=== PATIENT | female | born 1975 | race Caucasian/White ===

== ENCOUNTER 2017-01-07 15:51 | Emergency (ER) | payer BC ==
[2017-01-07] MEDS ORDERED: Ondansetron INJ* 2 MG/ML VIAL IV ONE (16:30)
[2017-01-07] MEDS ORDERED: NS 0.9% 1000 ML* 1,000 ML IV ONE (16:30)
[2017-01-07] MEDS ORDERED: Famotidine IV* 10 MG/ML 2 ML (20 mg) IV ONE (16:30)
[2017-01-07 17:05] LABS: Hematocrit 48 % (35-47); Hemoglobin 15.7 g/dl (12.0-16.0); Mean Corpuscular HGB Conc 33 g/dl (31-36); Mean Corpuscular Hemoglobin 29 pg (27-31); Mean Corpuscular Volume 88 fL (80-97); Mean Platelet Volume 7 um3 (7.4-10.4); Red Blood Count 5.43 10^6/ul (4.0-5.4); Red Cell Distribution Width 13 % (10.5-15); White Blood Count 16.2 10^3/ul (3.5-10.8)
[2017-01-07 17:23] LABS: Albumin 4.4 g/dL (3.2-5.2); BUN/Creatinine Ratio 19.5 (8-20); C Reactive Protein 1.56 mg/L (< 5.00); Calcium 9.7 mg/dL (8.6-10.3); EGFR African American 91.4 (>60); EGFR Non-African American 71.1 (>60); Globulin 3.2 g/dL (2-4); Potassium 3.6 mmol/L (3.5-5.0); Total Bilirubin 0.7 mg/dL (0.2-1.0); Total Protein 7.6 g/dL (6.4-8.9)
--- NOTE | 2017-01-07 17:51 | RAD ---
Indication: Nausea, vomiting, diarrhea, abdominal pain. Comparison: None. Technique: Supine and LEFT lateral decubitus views of the abdomen. Report: Negative for free air. Mildly dilated small bowel loops throughout the abdomen without significant air-fluid levels. Unremarkable gas distended colon. No suspicious calcifications or mass effect. LEFT pelvic phlebolith noted. Unremarkable soft tissue contours. IMPRESSION: Mildly dilated small bowel loops which may reflect ileus or partial small bowel obstruction.
[2017-01-07] MEDS ORDERED: Acetaminophen TAB* 325 MG PO ONE (18:08)
[2017-01-07] MEDS ORDERED: Iohexol 300* (CONTRAST) 10 ML SDV IV ONE (20:28)
[2017-01-07 20:40] VITALS: BP 152/98
--- NOTE | 2017-01-07 21:12 | RAD ---
INDICATION: Abdominal pain. Nausea, vomiting, diarrhea for 3 days. Unable to eat for 2 days. No previous abdominal surgery reported. COMPARISON: January 07, 2017 radiographs. TECHNIQUE: Multidetector CT images were obtained from the lung bases to the ischial tuberosities with 91 mL Omnipaque 300 IV and oral contrast. Multiplanar reformation. REPORT: Decreased density of the liver consistent with fatty infiltration. No focal hepatic lesions or biliary dilatation evident. Gallbladder is contracted around a 2.3 cm stone. Probable mild gallbladder wall thickening. No pericholecystic fluid evident. Unremarkable pancreas and spleen. Negative for CT abnormality of the upper GI, small bowel, or retrocecal appendix. Enteric contrast extends to the rectum. The sigmoid colon is decompressed likely accounting for mild visualized prominence of the wall. In regions where there is gas within the lumen of the wall of the sigmoid colon is thin. Negative for perienteric inflammatory change. Negative for ascites, free air, hernias. Normal adrenal glands. Unremarkable kidneys with symmetric nephrograms and pyelograms. Unremarkable ureters and moderately distended urinary bladder as well as the anteverted uterus and adnexal regions. Negative for lymphadenopathy. Normal diameter abdominal aorta and iliac arteries. Physiologic distention of the IVC. 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 L5-S1 degenerative spondylosis with associated reactive endplate sclerosis. Negative for suspicious osseous lesions. IMPRESSION: 1. Gallbladder is contracted around a 2.3 cm stone. Probable mild gallbladder wall thickening correlate with clinical assessment and consider RIGHT upper quadrant ultrasound for further assessment if deemed appropriate. 2. No obstructive or inflammatory process of the bowel evident. Normal retrocecal appendix documented. 3. Negative for ascites. 4. Negative for obstructive uropathy.
[2017-01-07] MEDS ORDERED: Morphine INJ* 4 MG/ML 1 ML SYRINGE IV ONE (21:35)
--- NOTE | 2017-01-07 22:30 | RAD ---
Indication: RIGHT upper quadrant pain. Cholelithiasis on CT. Comparison: CT of the same date. Technique: RIGHT upper quadrant ultrasound. Report: 14 cm cephalocaudal liver is grossly normal in echotexture. Appropriate direction flow documented in the portal and hepatic veins. No focal hepatic lesions or intrahepatic biliary dilatation. Based on correlation with CT there is a large shadowing stone in the gallbladder with wall echo shadow sign. Mildly thickened 3.7 mm gallbladder wall. No pericholecystic fluid evident. Unable to accurately assess for sonographic Samuels's sign due to generalized poor tolerance for exam. Dilated common bile duct measuring up to 12.7 mm. No stones visualized within the common bile duct. Conspicuity of the pancreas is limited. Negative for pancreatic duct dilatation at the visualized pancreatic head or body. Negative for ascites. Unremarkable 10.8 x 5.5 x 4.6 cm RIGHT kidney. IMPRESSION: 1. Based on correlation with CT there is a large shadowing stone in the gallbladder with wall echo shadow sign. Mildly thickened 3.7 mm gallbladder wall. No pericholecystic fluid evident. Unable to accurately assess for sonographic Samuels's sign due to generalized poor tolerance for exam. Early acute cholecystitis is not excluded. 2. Extrahepatic biliary dilatation without visualized common bile duct stone. Negative for pancreatic duct dilatation.
--- NOTE | 2017-01-22 20:57 | ED ---
Pamela Casiano Matthew, scribed for Benjy Peterson MD on 01/07/17 at 1638 . Abdominal Pain/Female - HPI Summary HPI Summary: A 41 y/o female presents to the ED with diffuse abdominal pain since yesterday. Associated symptoms include decreased appetite, nausea, vomiting, and diarrhea - described as watery. The patient denies blood w/ stool. The patient has been in rehab for heroin since 2 days ago. She stopped using at that time. She was started on suboxone earlier today. - History of Current Complaint Chief Complaint: EDNauseaVomitDiarrh Stated Complaint: NAUSEA/VOMITTING Time Seen by Provider: 01/07/17 16:09 Hx Obtained From: Patient ?: No Onset/Duration: Gradual Onset, Lasting Days, Still Present Timing: Constant Severity Initially: Moderate Severity Currently: Moderate Location: Diffuse Radiates: No Associated Signs and Symptoms: Positive: Decreased Appetite, Nausea, Vomiting, Diarrhea Allergies/Adverse Reactions: Allergies Allergy/AdvReac Type Severity Reaction Status Date / Time No Known Allergies Allergy Verified 01/07/17 16:44 PMH/Surg Hx/FS Hx/Imm Hx Previously Healthy: Yes Endocrine/Hematology History: Denies: Hx Diabetes Infectious Disease History: Denies: Traveled Outside the [place] in Last 30 Days - Family History Known Family History: Positive: Hypertension, Diabetes - Social History Alcohol Use: None Substance Use Type: Reports: Heroin Smoking Status (MU): Current Every Day Smoker Review of Systems Constitutional: Negative Eyes: Negative ENT: Negative Cardiovascular: Negative Respiratory: Negative Positive: Abdominal Pain - Diffuse, Vomiting, Diarrhea, Nausea Genitourinary: Negative Musculoskeletal: Negative Skin: Negative Neurological: Negative Psychological: Normal All Other Systems Reviewed And Are Negative: Yes Physical Exam - Summary Physical Exam Summary: VITAL SIGNS: Reviewed. GENERAL: Patient is a well developed and nourished female who is lying comfortable in the stretcher. Patient is not in any acute respiratory distress. HEAD AND FACE: Normocephalic and atraumatic. EYES: PERRLA, EOMI x 2, No injected conjunctiva. EARS: Hearing grossly intact. Ear canals and tympanic membranes are WNL. MOUTH: Oropharynx within normal limits. NECK: Supple, trachea is midline, no adenopathy, no JVD. CHEST: Symmetric, no tenderness at palpation LUNGS: Clear to auscultation bilaterally. No wheezing or crackles. CVS: RRR,, S1 and S2 present, no murmurs or gallops appreciated. ABDOMEN: Soft, non-tender. No signs of distention. Positive bowel sounds. No rebound no guarding, and no masses palpated. No abdominal bruit or pulsations. EXTREMITIES: FROM in all major joints, no edema, no cyanosis or clubbing. NEURO: Alert and oriented x 3. No acute neurological deficits. Speech is normal. SKIN: Dry and warm Triage Information Reviewed: Yes Vital Signs On Initial Exam: Initial Vitals Temp Pulse Resp BP Pulse Ox 98.8 F 60 18 150/122 97 01/07/17 15:55 01/07/17 15:55 01/07/17 15:55 01/07/17 15:55 01/07/17 15:55 Vital Signs Reviewed: Yes - Hudson Coma Scale Coma Scale Total: 15 Diagnostics - Vital Signs Vital Signs Temp Pulse Resp BP Pulse Ox 01/07/17 15:55 98.8 F 60 18 150/122 97 - Laboratory Result Diagrams: 01/07/17 17:00 01/07/17 17:00 Lab Statement: Any lab studies that have been ordered have been reviewed, and results considered in the medical decision making process. - Radiology Abd XR Xray Interpretation: Positive (See Comments) - IMPRESSION: Mildly dilated small bowel loops which may reflect ileus or partial small bowel obstruction. Radiology Interpretation Completed By: Radiologist - CT A/P CT Interpretation: Positive (See Comments) - IMPRESSION: 1. Gallbladder is contracted around a 2.3 cm stone. Probable mild gallbladder wall thickening correlate with clinical assessment and consider RIGHT upper quadrant ultrasound for further assessment if deemed appropriate. 2. No obstructive or inflammatory process of the bowel evident. Normal retrocecal appendix documented. 3. Negative for ascites. 4. Negative for obstructive uropathy. CT Interpretation Completed By: Radiologist Abdominal Pain Fem Course/Dx - Course Course Of Treatment: A 41 y/o female presents to the ED with diffuse abdominal pain since yesterday. Associated symptoms include decreased appetite, nausea, vomiting, and diarrhea - described as watery. The patient denies blood w/ stool. The patient has been in rehab for heroin since 2 days ago. She stopped using at that time. She was started on suboxone earlier today. Blood work WNL expect for WBC of 16.[address] shows gallbladder contracted around a 2.3cm stone with probable mild gallbladder thickening and recommends US. Negative for obstructive or inflammatory process of the bowel evident, ascites, and obstructive uropathy. In the ED course, the patient was given IV fluids, Zofran for nausea and morphine for pain. The patient continues to have abdominal pain now more localized in the RUQ therefore I decided to do a RUQ US to r/o acute cholecystitis. The patient is awaiting an US and will be signed out to Dr. Danielle pending the US report. If the patient has cholecystitis Dr. Albrecht will contact Dr. Magdaleno. If the US is negative that patient can be discharged home with follow-up from her PCP. - Diagnoses Differential Diagnosis: Positive: Bowel Obstruction, Constipation, Urinary Tract Infection Provider Diagnoses: Abdominal pain Discharge - Discharge Plan Condition: Stable Disposition: HOME Discharge Disposition Comment: The patient is signed out to Dr. Danielle pending US. Patient Education Materials: Abdominal Pain (ED) Referrals: [facility] [Outside] Additional Instructions: Please follow up with your PCP tomorrow. The documentation as recorded by the aPmela wolff Matthew accurately reflects the service I personally performed and the decisions made by me, Benjy Peterson MD.
--- NOTE | 2017-01-24 23:45 | ED ---
Christian Casiano Erika, scribed for Kedar Danielle MD on 01/07/17 at 2238 . Progress - Progress Note Progress Note: Patient signed out to Dr. Danielle from Dr. Peterson. - Results/Orders Results/Orders: Gallbladder US read by radiologist - IMPRESSION: 1. Based on correlation with CT there is a large shadowing stone in the gallbladder with wall echo shadow sign. Mildly thickened 3.7 mm gallbladder wall. No pericholecystic fluid evident. Unable to accurately assess for sonographic Samuels's sign due to generalized poor tolerance for exam. Early acute cholecystitis is not excluded. 2. Extrahepatic biliary dilatation without visualized common bile duct stone. Negative for pancreatic duct dilatation. Course/Dx - Diagnoses Provider Diagnoses: Abdominal pain Discharge - Discharge Plan Condition: Stable Disposition: HOME Patient Education Materials: Abdominal Pain (ED) Referrals: [facility] [Outside] Additional Instructions: Please follow up with your PCP tomorrow. The documentation as recorded by the Christian wolff Erika accurately reflects the service I personally performed and the decisions made by , Kedar Danielle MD.
== END 2017-01-07 23:52 | disposition home or self-care (01) ==
LOC: ED 15:51
DX: R10.9 Unspecified abdominal pain (principal); R11.2 Nausea with vomiting, unspecified; R19.7 Diarrhea, unspecified; Z87.891 Personal history of nicotine dependence
CPT/HCPCS: 36415; 74020; 74177; 76705; 80053; 82150; 83690; 84702; 85025; 86140; 96374; 96375; 99283; A9270-GY; J2270; J2405; Q9967